=== PATIENT | male | born 1990 | race Caucasian/White ===

== ENCOUNTER 2023-04-04 23:08 | Emergency (ER) | payer BC ==
[2023-04-04] MEDS ORDERED: LORazepam 2 MG/ML SDV IM ONE (23:11)
== END 2023-04-05 00:09 | disposition home or self-care (01) ==
LOC: FB.ED 23:08
DX: F41.9 Anxiety disorder, unspecified (principal)
CPT/HCPCS: 96372; 99283; J2060

== ENCOUNTER 2023-05-02 18:26 | Emergency (ER) | payer SELFPAY ==
[2023-05-02] MEDS ORDERED: Sodium Chloride 0.9% 10 ML Syringe FLUSH PRN (18:34)
[2023-05-02] MEDS ORDERED: LORazepam 2 MG/ML SDV IVPUSH ONE ×3 (18:35→19:32)
[2023-05-02] MEDS ORDERED: Sodium Chloride 0.9% 1,000 ML IV SCH (18:45)
[2023-05-02 18:50] LABS: HEMOGLOBIN 16.2 g/dL (12.9-17.7); MEAN CORPUSCULAR HEMOGLOBIN 30.8 pg (27.0-33.3); MEAN CORPUSCULAR HGB CONC 34.4 g/dL (28.7-35.3); MEAN CORPUSCULAR VOLUME 89.5 fL (80.8-98.7); MEAN PLATELET VOLUME 8.2 fL (6.7-11.0); PLATELET COUNT,PLT 335 x10(3)uL (117-477); RED BLOOD CELL COUNT 5.25 x10(6)uL (3.90-5.90); RED CELL DISTRIBUTION WIDTH 13.8 % (12.4-15.0); WHITE BLOOD CELL COUNT,WBC 15.5 x10-3/uL (3.2-10.1)
[2023-05-02 18:52] LABS: BASE EXCESS VENOUS,POC 0 mmol/L (-2 - 3+); PCO2 VENOUS,POC 19 mmHg (41-51); PH VENOUS,POC 7.59 pH Units (7.32-7.43)
[2023-05-02 19:07] LABS: BLOOD UREA NITROGEN,BUN 14 mg/dL (7-18); CALCIUM 9.6 mg/dL (8.6-10.2); CARBON DIOXIDE,CO2 19 mmol/L (21-32); CHLORIDE,CL 99 mmol/L (100-110); CREATININE 1.4 mg/dL (0.70-1.30); ESTIMATED GFR 68 mL/min (>60); GLUCOSE RANDOM 192 mg/dL (80-116); POTASSIUM,K 3.5 mmol/L (3.5-5.3); SODIUM,NA 137 mmol/L (135-145)
[2023-05-02 19:10] LABS: EOSINOPHILS PERCENT MAN 1 % (0-5); LYMPHOCYTES PERCENT MAN 21 % (13-37); MONOCYTES PERCENT MAN 9 % (4-12); SEG NEUTROPHILS PERCENT MAN 69 % (46-82)
[2023-05-02 19:13] LABS: A/G RATIO 1.3; ALANINE AMINOTRANSFERASE,ALT 39 U/L (12-36); ALBUMIN 4.3 g/dL (3.5-5.2); ALKALINE PHOSPHATASE 96 IU/L (56-112); ASPARTATE AMNIOTRANSFERASE,AST 35 IU/L (5-25); BILIRUBIN TOTAL 0.9 mg/dL (0.1-1.3); MAGNESIUM 1.7 mg/dL (1.8-2.5); PROTEIN TOTAL,TP 7.6 g/dL (6.0-8.0)
[2023-05-02 20:13] LABS: AMPHETAMINES SCREEN, URINE POSITIVE (NEGATIVE); BARBITURATE SCREEN,URINE NEGATIVE (NEGATIVE); BENZODIAZEPINES SCREEN,URINE NEGATIVE (NEGATIVE); BUPRENORPHINE SCREEN,URINE NEGATIVE (NEGATIVE); METHADONE SCREEN, URINE NEGATIVE (NEGATIVE); METHAMPHETAMINE SCREEN, URINE POSITIVE (NEGATIVE); OXYCODONE SCREEN,URINE NEGATIVE (NEGATIVE); PROPOXYPHENE SCREEN,URINE NEGATIVE (NEGATIVE); THC SCREEN,URINE NEGATIVE (NEGATIVE)
== END 2023-05-02 20:45 | disposition home or self-care (01) ==
LOC: FB.ED 18:26
DX: R00.0 Tachycardia, unspecified (principal); E86.0 Dehydration; F15.10 Other stimulant abuse, uncomplicated; Z72.0 Tobacco use
CPT/HCPCS: 36415; 71046; 80053; 80307; 82550; 83605; 83735; 84484; 85025; 93005; 96361; 96374; 96376; 99285-25; J2060; J7030